=== PATIENT | male | born 1990 | race Caucasian/White ===

== ENCOUNTER 2017-03-07 09:28 | Emergency (ER) | payer MEDICAID ==
[~2017-03-07] VITALS: Ht 182.9 cm; Wt 113.4 kg
--- NOTE | 2017-03-07 09:45 | NUR ---
seen and evaluated by Dr. Haynes.
--- NOTE | 2017-03-07 09:55 | NUR ---
Patient discharged to home in stable condition. Written and verbal after care instructions given. Patient verbalizes understanding of instruction.
[2017-03-07 11:18] VITALS: BP 127/78
== END 2017-03-07 09:55 | disposition home or self-care (01) ==
LOC: ER 09:31
DX: R51 Headache (principal)
CPT/HCPCS: 99281; A4606; Z7610; Z7502

== ENCOUNTER 2024-10-28 13:17 | Emergency (ER) | payer OTHER, MEDICAID ==
[~2024-10-28] VITALS: Ht 182.9 cm; Wt 104.3 kg
[2024-10-28] MEDS ORDERED: ACETAMINOPHEN ES 500 MG TABLET ONE (15:14)
[2024-10-28] MEDS ORDERED: IBUPROFEN 600 MG TABLET ONE (15:14)
[2024-10-28] MEDS: IBUPROFEN 600 MG TABLET PO ONE (15:18)
[2024-10-28] MEDS: ACETAMINOPHEN ES 500 MG TABLET PO ONE (15:18)
[2024-10-28 16:05] VITALS: BP 133/84; TEMP 98; O2SAT 99
== END 2024-10-28 16:06 | disposition home or self-care (01) ==
LOC: ER 13:35
DX: S09.90XA Unspecified injury of head, initial encounter (principal); M79.631 Pain in right forearm; W10.8XXA Fall (on) (from) other stairs and steps, initial encounter; Y93.89 Activity, other specified; Y92.89 Other specified places as the place of occurrence of the external cause; Y99.8 Other external cause status
CPT/HCPCS: 73090-TC